=== PATIENT | male | born 1970 | race Caucasian/White ===

== ENCOUNTER 2023-11-02 03:49 | Emergency (ER) | payer BC, OTHER ==
[2023-11-02] MEDS ORDERED: Ibuprofen 800 MG Tab PO ONE (04:27)
[2023-11-02] MEDS ORDERED: Penicillin V Potassium Soln 250 MG/5 ML 100 ML Bottle PO ONE (04:27)
[2023-11-02] MEDS ORDERED: Acetaminophen/HYDROcodone 325-5 MG Tab PO ONE (04:27)
[2023-11-02] MEDS ORDERED: Penicillin V Potassium 500 MG Tab PO STA (04:39)
== END 2023-11-02 04:50 | disposition home or self-care (01) ==
LOC: MW.ED 03:49
DX: K08.89 Other specified disorders of teeth and supporting structures (principal); Z88.8 Allergy status to other drugs, medicaments and biological substances
CPT/HCPCS: 99282; A9270; 99283